=== PATIENT | female | born 1960 | race Caucasian/White ===

== ENCOUNTER 2021-03-20 21:17 | Emergency (ER) | payer BC ==
[~2021-03-20] VITALS: Ht 165.1 cm; Wt 70.8 kg
[~2021-03-20 21:17] MED LIST: B-100 COMPLEX1 EAC1 PO; BYSTOLIC10 MG PO; CALCIUM 600 WI1 EACH PO; COZAAR 50 MG TA50 M1 PO; HYDROCHLOROTH12.5 MG PO; NORVASC 5 MG TAB5 MG PO; POTASSIUM99 M1 PO; PROAIR HFA8.5 GM; REMIFEMIN PO; ULTRAM 50MG TAB50 MG PO; VITAMINC500 PO; ZYRTEC10 M2 PO
[2021-03-20] MEDS ORDERED: ATENOLOL 25 MG25 M1 PO (21:22)
[2021-03-20] MEDS ORDERED: AMITRIPTYLINE H25 M4 PO (21:23)
[2021-03-20] MEDS ORDERED: FENOFIBRATE145 MG PO (21:23)
[2021-03-20] MEDS ORDERED: SINGULAIR 10 MG10 MG PO (21:23)
[2021-03-20] MEDS ORDERED: OXYCODONE HCL 55 MG PO (23:50)
[2021-03-21 00:03] VITALS: BP 144/70
== END 2021-03-21 00:03 | disposition home or self-care (01) ==
LOC: M.ERS 21:17
DX: M25.512 Pain in left shoulder (principal); I10 Essential (primary) hypertension; Z79.899 Other long term (current) drug therapy; Z90.710 Acquired absence of both cervix and uterus; Z79.51 Long term (current) use of inhaled steroids; Z79.891 Long term (current) use of opiate analgesic; Z79.1 Long term (current) use of non-steroidal anti-inflammatories (NSAID); Z88.6 Allergy status to analgesic agent; Z88.5 Allergy status to narcotic agent; Z88.8 Allergy status to other drugs, medicaments and biological substances; W01.0XXA Fall on same level from slipping, tripping and stumbling without subsequent striking against object, initial encounter; Y93.89 Activity, other specified; Y92.89 Other specified places as the place of occurrence of the external cause; Y99.8 Other external cause status